=== PATIENT | male | born 1960 | race Caucasian/White ===

== ENCOUNTER 2016-12-21 11:18 | Emergency (ER) | payer BC ==
[2016-12-21 11:30] VITALS: BP 134/63
[2016-12-21] MEDS ORDERED: Sodium Chloride 0.9% 10 ML Syringe FLUSH PRN (11:54)
[2016-12-21] MEDS ORDERED: Sodium Chloride 0.9% 1,000 ML IV ONE (11:55)
--- NOTE | 2016-12-21 11:59 | EDM.PDOC ---
ED HPI GENERAL MEDICAL PROBLEM - General Chief Complaint: General Stated Complaint: SEIZURES/NEEDS CT & BLOODWORK Time Seen by Provider: 12/21/16 11:50 Source of Information: Reports: Patient, Family History Limitations: Reports: No Limitations - History of Present Illness INITIAL COMMENTS - FREE TEXT/NARRATIVE: Jorje is a 56 year old male with a hx of lymphoma who presents to the ED today with is as directed by his primary oncologist out of [place], [place] for possible seizures. Patient reports one episode where he was getting up to urinate and passed out, noticed shaking, he was not incontinent of urine or stool during this time and woke up quickly after incident. Then yesterday, patient woke up and reports uncontrolled shaking but was awake during that time and aware of what was happening. Patient at this time denies any headache, neck pain/stiffness or fever. He denies any chest pain except for when he coughs. Patient has developed a cough after each round of chemotherapy which has been treated with a Z-pack, his last dose was today. Patient reports that cough really has not changed. Patient denies any visual changes or other c/o. He does report that he has not been drinking as much water as he normally does [place]. - Related Data Allergies Allergy/AdvReac Type Severity Reaction Status Date / Time No Known Allergies Allergy Verified 12/21/16 11:29 Past Medical History Immunologic History: Reports: Immunosuppression Oncologic (Cancer) History: Reports: Non-Hodgkin's Lymphoma - Past Surgical History GI Surgical History: Reports: Cholecystectomy Male Surgical History: Reports: Vasectomy Social & Family History - Tobacco Use Smoking Status *Q: Never Smoker ED ROS GENERAL - Review of Systems Review Of Systems: See Below Constitutional: Reports: No Symptoms HEENT: Reports: No Symptoms Respiratory: Reports: Pleuritic Chest Pain, Cough Cardiovascular: Reports: No Symptoms Endocrine: Reports: No Symptoms GI/Abdominal: Reports: No Symptoms : Reports: No Symptoms Musculoskeletal: Reports: No Symptoms Skin: Reports: No Symptoms Neurological: Reports: Syncope, Tremors Psychiatric: Reports: No Symptoms Hematologic/Lymphatic: Reports: No Symptoms Immunologic: Reports: No Symptoms ED EXAM, GENERAL - Physical Exam Exam: See Below Exam Limited By: No Limitations General Appearance: Alert, WD/WN, No Apparent Distress Eye Exam: Bilateral Eye: EOMI, PERRL Ears: Normal External Exam, Normal TMs Throat/Mouth: Normal Oropharynx Head: Atraumatic, Normocephalic Neck: Normal Inspection, Supple, Non-Tender Respiratory/Chest: No Respiratory Distress, Lungs Clear Cardiovascular: Normal Peripheral Pulses, Regular Rate, Rhythm, No Murmur GI/Abdominal: Normal Bowel Sounds, Soft, Non-Tender Extremities: Normal Inspection Neurological: Alert, Oriented, CN II-XII Intact, No Motor/Sensory Deficits Psychiatric: Normal Affect, Normal Mood Skin Exam: Warm, Dry, Intact Lymphatic: No Adenopathy Course - Vital Signs Last Recorded V/S: Last Vital Signs Temp 36.7 C 12/21/16 11:41 Pulse 85 12/21/16 11:41 Resp 14 12/21/16 11:41 BP 134/63 12/21/16 11:41 Pulse Ox 95 12/21/16 11:41 Jorje is a 56 year old male with lymphoma in his chest/abdomen who presents to the ED today with his for concerns of possible seizure activity. Please refer to HPI and focused exam. Patient on exam is well hydrated, he is non- toxic appearing. He does not exhibit any neuro/focal deficits. Based on patient's report, it does not sound like he is having seizures, likely more syncope related and postural hypotension is playing a role. CT scan of head/ non and with contrast obtained and is negative for any acute findings. Blood work reveals a mild leukocytosis of 12.6, HGB is stable at 11.4. CMP returns with mildly elevated BUN of 19, creatinine and GFR are within normal limits. Magnesium is normal and remaining CMP is unremarkable. CXR obtained given hx of cough, this is negative for any acute lobar infiltrate. Patient was given 1 liter of NS here. I discussed test results and examination findings with patient and his , I feel that he is stable at this time to be discharged home. Patient is scheduled for a PET scan on Friday which I encouraged him to keep. I did discuss with patient staying well hydrated and getting up slowly to avoid any further episodes. Reasons to return to the ED were discussed in detail, patient and his agreeable and were discharged in stable condition. - Orders/Labs/Meds Orders: Active Orders 24 hr Category Date Time Status Peripheral IV Care [RC] . DIRECTED Care 12/21/16 11:54 Active Chest 2V [CR] Stat Exams 12/21/16 11:55 Taken Head w wo Cont [CT] Stat Exams 12/21/16 11:55 Taken Iopamidol [Isovue-300 (61%)] Med 12/21/16 12:43 Active 100 ml IV . DIRECTED PRN Sodium Chloride 0.9% [Saline Flush] Med 12/21/16 11:54 Active 10 ml FLUSH ASDIRECTED PRN Peripheral IV Insertion Adult [OM.PC] Routine Oth 12/21/16 11:54 Ordered Medication Orders Iopamidol (Isovue-300 (61%)) 100 ml IV . DIRECTED PRN PRN Reason: RADIOLOGY EXAM Stop: 12/22/16 12:44 Last Admin: 12/21/16 12:55 Dose: 100 ml Sodium Chloride (Saline Flush) 10 ml FLUSH ASDIRECTED PRN PRN Reason: Keep Vein Open Last Admin: 12/21/16 12:18 Dose: 10 ml Labs: Laboratory Tests 12/21/16 12/21/16 Range/Units 12:14 12:14 WBC 12.6 H (4.5-11.0) K/uL RBC 4.13 L (4.30-5.90) M/uL Hgb 11.4 L (12.0-15.0) g/dL Hct 35.2 L (40.0-54.0) % MCV 85 (80-98) fL MCH 28 (27-31) pg MCHC 32 (32-36) % Plt Count 234 (150-400) K/uL Neut % (Auto) 83 H (36-66) % Lymph % (Auto) 7 L (24-44) % Hutchinson % (Auto) 9 H (2-6) % Eos % (Auto) 1 L (2-4) % Baso % (Auto) 1 (0-1) % Sodium 138 L (140-148) mmol/L Potassium 3.7 (3.6-5.2) mmol/L Chloride 102 (100-108) mmol/L Carbon Dioxide 28 (21-32) mmol/L Anion Gap 11.7 (5.0-14.0) mmol/L BUN 19 H (7-18) mg/dL Creatinine 1.1 (0.8-1.3) mg/dL Est Cr Clr Drug Dosing 75.58 mL/min Estimated GFR (MDRD) > 60 (>60) Glucose 114 H (74-106) mg/dL Calcium 8.9 (8.5-10.1) mg/dL Magnesium 2.2 (1.8-2.4) mg/dL Total Bilirubin 0.5 (0.2-1.0) mg/dL AST 14 L (15-37) U/L ALT 27 (12-78) U/L Alkaline Phosphatase 107 (46-116) U/L Total Protein 7.4 (6.4-8.2) g/dL Albumin 2.8 L (3.4-5.0) g/dL Globulin 4.6 H (2.3-3.5) g/dL Albumin/Globulin Ratio 0.6 L (1.2-2.2) Meds: Medications Generic Name Dose Route Start Last Admin Trade Name Frevinayak PRN Reason Stop Dose Admin Iopamidol 100 ml 12/21/16 12:43 12/21/16 12:55 Isovue-300 (61%) IV 12/22/16 12:44 100 ml . DIRECTED PRN Administration RADIOLOGY EXAM Sodium Chloride 10 ml 12/21/16 11:54 12/21/16 12:18 Saline Flush FLUSH 10 ml ASDIRECTED PRN Administration Keep Vein Open Discontinued Medications Generic Name Dose Route Start Last Admin Trade Name Freq PRN Reason Stop Dose Admin Sodium Chloride 1,000 mls @ 999 mls/hr 12/21/16 11:55 12/21/16 12:18 Normal Saline IV 12/21/16 12:55 999 mls/hr .BOLUS ONE Administration Departure - Departure Time of Disposition: 14:15 Disposition: Home, Self-Care 01 Condition: Good Clinical Impression: Occasional tremors Syncope Qualifiers: Syncope type: unspecified Qualified Code(s): R55 - Syncope and collapse - Discharge Information Instructions: Syncope, [id number] Forms: ED Department Discharge Additional Instructions: Jorje, please stay well hydrated. Get up from a sitting/lying position slowly. Return to the ED with any complications/worsening symptoms. Follow up Friday for your PET scan as scheduled. Take care and good luck with everything. - My Orders Last 24 Hours: My Active Orders 12/21/16 11:54 Peripheral IV Care [RC] . DIRECTED Sodium Chloride 0.9% [Saline Flush] 10 ml FLUSH ASDIRECTED PRN Peripheral IV Insertion Adult [OM.PC] Routine 12/21/16 11:55 Chest 2V [CR] Stat Head w wo Cont [CT] Stat 12/21/16 12:43 Iopamidol [Isovue-300 (61%)] 100 ml IV . DIRECTED PRN - Assessment/Plan Last 24 Hours: My Active Orders 12/21/16 11:54 Peripheral IV Care [RC] . DIRECTED Sodium Chloride 0.9% [Saline Flush] 10 ml FLUSH ASDIRECTED PRN Peripheral IV Insertion Adult [OM.PC] Routine 12/21/16 11:55 Chest 2V [CR] Stat Head w wo Cont [CT] Stat 12/21/16 12:43 Iopamidol [Isovue-300 (61%)] 100 ml IV . DIRECTED PRN
[2016-12-21] MEDS ORDERED: Iopamidol 612 MG/ML 100 ML Bottle IV PRN (12:43)
--- NOTE | 2016-12-23 09:37 | CR ---
Chest 2V FINDINGS: There is a [id number] catheter on the left. The tip is positioned within the SVC. The h eart and vascular structures are normal in appearance. No infiltrates or effusions are demonstrated. The skeletal structures are unremarkable. IMPRESSION: 1. Portacatheter in good position. 2. No acute findings.
== END 2016-12-21 15:09 | disposition home or self-care (01) ==
LOC: JP.ED 11:18
DX: R25.1 Tremor, unspecified (principal); R55 Syncope and collapse; Z90.49 Acquired absence of other specified parts of digestive tract; Z98.52 Vasectomy status; Z85.72 Personal history of non-Hodgkin lymphomas
CPT/HCPCS: 36415; 70470; 71020; 80053; 83735; 85025; 96360; 99285; J7040; J7050; Q9967